=== PATIENT | female | born 1945 | race Caucasian/White ===

== ENCOUNTER 2023-04-23 08:18 | Outpatient (REF) | payer MEDICARE, OTHER, SELFPAY ==
[2023-04-23 12:11] VITALS: BMI 34.3
[2023-04-23 12:13] VITALS: BP 143/74; PULSE 101; RESP 18; TEMP 36.3; O2SAT 97
== END 2023-04-23 08:19 | disposition home or self-care (01) ==
LOC: HO.MS 08:18
PROVIDERS: PCP Internal Medicine; Visit Provider Ophthalmology
PROC: (CPT 66821; principal; 2023-04-23 10:50)
DX: H26.491 Other secondary cataract, right eye (principal)
CPT/HCPCS: 66821

== ENCOUNTER 2024-12-29 10:53 | Outpatient (AMB) | payer MEDICARE, OTHER, SELFPAY ==
--- NOTE | 2024-12-29 10:57 | AM.OFFWIN_ITS ---
Intake Vital Signs 12/29/24 10:58 Height 5 ft 4 in Weight 213 lb BMI 36.6 BP 124/62 Blood Pressure Location Rt brachial Position Sitting Pulse 84 Pulse Source Pulse Oximeter Temp 98.0 F Temp Source Oral Pulse Oximetry (%) 95 Oxygen Delivery Method Room Air Intake Visit Reasons: EP Bit by bug, blistering/red/itching Intake Note: pt presents with right lower leg redness, swelling, itching and weeping after a bug bite 2 days ago Allergies No Known Allergies Allergy (Verified 12/29/24 10:59) Do you need a note to return to daycare/school/sports/work: No HPI HPI Comments History of Present Illness Details History - The patient is a 79-year-old female pr esenting with an insect bite with s econdary infection. - The insect bite occurred on Sunday w [facility], and the patient is unsure of the insect type. - The bite site became tender, itchy, an d developed a blister, which the patient drained with a pen. - The patient applied triple antibiotic ointment after draining the blister. - Overnight, the condition worsened with increased redness and spreading infection. - No fever was reported, but the area re mained tender and itchy. - She denies fever, chills, calf pain, j oint pain, numbness, tingling, or other rashes. Physical Exam General: Cooperative, healthy appearing, comfortable, no acute distress and well developed Cardiac: Normal S1 and S2. RRR, no M/R/G noted. Respiratory: Normal respiratory effort and able to speak in complete sentences. Clear to auscultation bilaterally. No w/r/r noted. Skin: Erythematous area noted on the right medial lower leg at the ankle. Blister present with crusting. No rashes or other lesions noted. No streaking noted. Neuro: Sensation is intact. Patient was informed and verbally consented to the use of an ambient scribe for clinic note documentation during this visit. Review of Systems Const All systems reviewed & are unremarkable except as noted in HPI and below Physical Exam Vital Signs: Last Vital Signs Temp 98.0 F 12/29/24 10:58 Pulse 84 12/29/24 10:58 BP 124/62 12/29/24 10:58 Pulse Ox 95 12/29/24 10:58 Oxygen Delivery Method Room Air 12/29/24 10:58 BMI result Body Mass Index 36.6 Assessment & Plan Assessment & Plan (1) Bug bite: Code(s): W57.XXXA - Bitten or stung by nonvenomous insect and other nonvenomous ar thropods, initial encounter Qualifiers: Encounter type: initial encounter Qualified Code(s): W57.XXXA - Bitten or stung by nonvenomous insect and other nonvenomous arthropods, initial encounter (2) Cellulitis: Code(s): L03.90 - Cellulitis, unspecified Qualifiers: Site of cellulitis: extremity Site of cellulitis of extremity: lower extremity Laterality: right Qualified Code(s): L03.115 - Cellulitis of right lower limb Plan Most likely cellulitis after a bug bite Plan - Initiate doxycycline treatment to address the infection and prevent further spread. - Advise the patient to avoid sun exposure while on doxycycline. - Recommend elevation of the affected leg to reduce swelling. - Suggest the use of Tylenol or Motrin for pain management and antihistamines for itching relief. - Instruct the patient to monitor the redness and contact the clinic if the condition worsens. Medications: New doxycycline hyclate 100 mg PO BID 14 tabs 0RF Coding Level of Care Code Est Pt Level 3 (59846) Diagnoses Bug bite, initial encounter W57.XXXA Encounter type: initial encounter Cellulitis of right lower extremity L03.115 Site of cellulitis: extremity Site of cellulitis of extremity: lower extremity Laterality: right
[2024-12-29 10:58] VITALS: BP 124/62; PULSE 84; TEMP 36.7; O2SAT 95; BMI 36.6
--- OUTSIDE RECORDS SUMMARY | 2024-12-29 12:12 | XMS_ITS ---
Author Name [facility] Organization Unknown Care Team Organization Name Specialty Phone Email Start Date End Da te [facility] Termed, PROVIDER Primary Care 06/08/202406/07 [facility] Termed, PROVIDER Primary Care 04/18/202306/07 [facility] MATHEW Primary Care 10/13/2022 06/19/2024 [facility] PETERSON BUNCH Primary Care 07/12/20222024 [facility] REBEKAH VILLARREAL Primary Care 03/14/2022 06/19/2024
--- OUTSIDE RECORDS SUMMARY | 2024-12-29 12:12 | XMS_ITS | Encounter Summary ---
Author Organization [facility] Address [address] [place] [address] Care Team Providers Care Chemistry Technician Name Role Phone Bindu Ornelas MD Primary Care Prov ider Reason for Visit * Reason Onset Date Comments Medical Records 12/29/2024 Encounter Details Date Type Department Care Team (Late st Contact Info) Description 12/29/2024 Telephone [facility] Cardiology [facility] [address] [place] [id number] Bindu Ornelas MD [address] [place] [id number] Medical Records Social History Tobacco Use Types Packs/Day Years Used Date Smoking Tobacco: Never Smokeless Tobacco: Never Alcohol Use Standard Drinks/Week Comments Yes 1 (1 standard drink = 0.6 oz pur e alcohol) occ Housing Instability Answer Date Recorde d Are you worried that in the next 2 months you may not have stable housing? No 07/04/2024 Food Access & Nutrition Answer Date Rec orded Do you have access to a vari ety of food including fruits and vegetables? Yes 07/04/2024 Access to Healthcare Answer Date Record ed Within the last 3 months, ho an many times did you visit the emergency department for your medical care? 1 07/04/2024 Health Literacy Answer Date Recorded How often do you need to hav e someone help you when you read instructions, pamphlets, or other written material from your doctor or pharmacy? Never 07/04/2024 Caregiver: How often do you need to have someone help you when you read instructions, pamphlets, or other written material from your doctor or pharmacy? Not on file 07/04/2024 Financial Risk Answer Date Recorded How hard is it for you to pa y for the very basics like food, housing, medical care, and air conditioning / heating? Not very hard 07/04/2024 Transportation Answer Date Recorded Has the lack of transportati on kept you from meetings, work, or from getting things needed for daily living? No Has the lack of transportati on kept you from medical appointments or from getting medications? No 07/04/2024 Social Isolation Answer Date Recorded How often do you feel lonely or isolated from th ose around you? Never 07/04/2024 Food Risk Answer Date Recorded Within the past 12 months we worried whether our food would run out before we got money to buy more. Never true 07/04/2024 Within the past 12 months th e food we bought just didn't last and we didn't have money to get more. Never true 07/04/2024 Dependent Care Answer Date Recorded Do you need help finding or paying for care for your loved ones. For example, children librarian or elderly care for an older adult? No 07/04/2024 Education Answer Date Recorded Do you think completing more education or training, like finishing a GED, going to college, or learning a trade, would be helpful for you? No 07/04/2024 Employment and Income Answer Date Recor ded During the last four weeks, have you been actively looking for work? No 07/04/2024 Living Situation Answer Date Recorded What is your living situation? 0 07/04/2024 Comments No Sex and Gender Information Value Date Recorded Sex Assigned at Female 03/19/2024 1:53 PM EST Legal Sex Female 7:43 PM EST Gender Identity Female 03/19/2024 1:53 PM EST Sexual Orientation Straight 03/19/2024 1: 53 PM EST documented as of this encounter Progress Notes * Elvia Hammer - 12/29/2024 10:29 AM EDT Patient called to inform us that she is leaving the practice and would [facility]. I explained to her that we have a third constitution party copying service that will process your complete records upon receiving a signed Medical Record release. Patient understood and I mailed a Medical record release to address on file. documented in this encounter Plan of Treatment Not on file documented as of this encounter Visit Diagnoses Not on filedocumented in this encounter Additional Health Concerns Assessment Noted Time PHQ-9 Depression Total Score: 0 07/08/19 25 8:58 AM EST documented as of this encounter Care Teams Chemistry Technician Relationship Specialty Start Date End Date Bindu Ornelas MD PCP - General Internal Medicine 08/31/20 documented as of this encounter
== END 2024-12-29 11:34 | disposition home or self-care (01) ==
PROVIDERS: PCP Internal Medicine; Visit Provider Physician Assistant Medical
DX: T63.481A Toxic effect of venom of other arthropod, accidental (unintentional), initial encounter (principal); L03.115 Cellulitis of right lower limb

== ENCOUNTER → 2024-12-29 10:53 | Outpatient (BNVA) | payer MEDICARE, OTHER, SELFPAY | PROVIDERS: PCP Internal Medicine; Visit Provider Physician Assistant Medical | DX: L03.115 Cellulitis of right lower limb (principal); T14.8XXA Other injury of unspecified body region, initial encounter; W57.XXXA Bitten or stung by nonvenomous insect and other nonvenomous arthropods, initial encounter | CPT/HCPCS: 99212 ==